=== PATIENT | male | born 1960 | race Caucasian/White ===

== ENCOUNTER 2016-05-18 14:42 | Emergency (ER) | payer MEDICARE ==
[2016-05-18 15:11] LABS: BASOPHILS 0.6 % (0.0-2.0); EOSINOPHILS 5.2 % (0-7); IMMATURE GRANULOCYTES 0.2 % (0-5); LYMPHOCYTES 29.6 % (15-50); MCH 30.6 pg (26.0-34.0); MCHC 33.3 g/dL (31.0-37.0); MCV 91.8 fL (80.0-100.0); MEAN PLATELET VOLUME 10.3 fL (7.4-10.4); MONOCYTES 16.7 % (2-11); NEUTROPHILS 47.7 % (40-80); PLATELET COUNT 132 10x3/uL (130-400); RBC 3.92 10x6/uL (4.20-6.10); RDW 13.5 % (11.5-14.5); WBC 6.2 10x3/uL (4.8-10.8)
[2016-05-18 15:37] LABS: ALBUMIN 3.2 g/dL (3.4-5.0); ALKALINE PHOSPHATASE 55 U/L (46-116); ALT (SGPT) 23 U/L (10-68); BILIRUBIN - TOTAL 0.26 mg/dL (0.2-1.3); CALC OSMOLALITY 278 mosm/kg (275-300); CALCIUM 8.6 mg/dL (8.5-10.1); CHLORIDE - SERUM 102 mmol/L (98-107); CREATININE - SERUM 0.8 mg/dL (0.6-1.3); GLUCOSE 85 mg/dL (74-106); MAGNESIUM - SERUM 1.6 mg/dL (1.8-2.4); POTASSIUM - SERUM 3.9 mmol/L (3.5-5.1); PROTEIN - SERUM 6.6 g/dL (6.4-8.2); SODIUM 139 mmol/L (136-145); UREA NITROGEN 19 mg/dL (7-18); eGFR NON AFRICAN AMERICAN > 90 mL/min (90-120)
== END 2016-05-18 17:54 | disposition home or self-care (01) ==
LOC: D.ER 14:42
PROVIDERS: Family Medicine
DX: G40.909 Epilepsy, unspecified, not intractable, without status epilepticus (principal); J44.9 Chronic obstructive pulmonary disease, unspecified; F29 Unspecified psychosis not due to a substance or known physiological condition; F41.9 Anxiety disorder, unspecified; Z91.81 History of falling

== ENCOUNTER 2016-12-08 16:46 | Emergency (ER) | payer MEDICARE ==
[2016-12-08 17:58] LABS: BASOPHILS 0.6 % (0-2); EOSINOPHILS 3.7 % (0-7); HEMATOCRIT 37.9 % (42.0-54.0); HEMOGLOBIN 13.1 g/dL (13.5-17.5); IMMATURE GRANULOCYTES 0.6 % (0-5); LYMPHOCYTES 21.5 % (15-50); MCH 31.3 pg (26.0-34.0); MCHC 34.6 g/dL (31.0-37.0); MCV 90.7 fL (80.0-100.0); MEAN PLATELET VOLUME 9.7 fL (7.4-10.4); MONOCYTES 17.8 % (2-11); NEUTROPHILS 55.8 % (40-80); RBC 4.18 10x6/uL (4.20-6.10); RDW 13.9 % (11.5-14.5); WBC 4.9 10x3/uL (4.8-10.8)
[2016-12-08 18:00] LABS: PLATELET COUNT 135 10x3/uL (130-400)
[2016-12-08 18:14] LABS: ALBUMIN 3.2 g/dL (3.4-5.0); ALKALINE PHOSPHATASE 66 U/L (46-116); ALT (SGPT) 21 U/L (10-68); BILIRUBIN - TOTAL 0.28 mg/dL (0.2-1.3); CALC OSMOLALITY 272 mosm/kg (275-300); CALCIUM 8.9 mg/dL (8.5-10.1); CARBON DIOXIDE 24.5 mmol/L (21.0-32.0); CHLORIDE - SERUM 101 mmol/L (98-107); CREATININE - SERUM 0.8 mg/dL (0.6-1.3); GLUCOSE 99 mg/dL (74-106); MAGNESIUM - SERUM 1.7 mg/dL (1.8-2.4); PROTEIN - SERUM 7.3 g/dL (6.4-8.2); SODIUM 136 mmol/L (136-145); UREA NITROGEN 15 mg/dL (7-18); eGFR NON AFRICAN AMERICAN > 90 mL/min (90-120)
== END 2016-12-08 19:16 | disposition home or self-care (01) ==
LOC: D.ER 16:46
PROVIDERS: Emergency Medicine
DX: G40.909 Epilepsy, unspecified, not intractable, without status epilepticus (principal); W19.XXXA Unspecified fall, initial encounter; Y93.89 Activity, other specified; Y92.89 Other specified places as the place of occurrence of the external cause; F17.200 Nicotine dependence, unspecified, uncomplicated; J44.9 Chronic obstructive pulmonary disease, unspecified

== ENCOUNTER → 2018-07-25 13:25 | Outpatient (CLI) | payer MEDICARE | END | disposition home or self-care (01) | LOC: D.CT 13:25 | PROVIDERS: ATTEND Legal Medicine | DX: R05 Cough (principal) ==

== ENCOUNTER 2018-09-16 15:56 | Emergency (ER) | payer MEDICARE ==
[~2018-09-16] VITALS: Ht 182.9 cm; Wt 68.2 kg
[2018-09-16 15:57] VITALS: Ht 182.9 cm; Wt 68.2 kg
[2018-09-16] MEDS ORDERED: TESSALON PERLE100 MG PO (16:00)
[2018-09-16] MEDS ORDERED: CALCIUM 600 +1 EAC3 PO (16:00)
[2018-09-16] MEDS ORDERED: ACETAMINOPHEN325 MG PO (16:00)
[2018-09-16] MEDS ORDERED: ASPIRIN81 MG PO (16:00)
[2018-09-16] MEDS ORDERED: DEPAKOTE500 MG PO (16:01)
[2018-09-16] MEDS ORDERED: VITAMIN D31000 UNI2 PO (16:01)
[2018-09-16] MEDS ORDERED: VALIUM5 MG PO (16:01)
[2018-09-16] MEDS ORDERED: KLONOPIN1 MG PO (16:02)
[2018-09-16] MEDS ORDERED: ADVAIR HFA [SP]12 GM INH (16:02)
[2018-09-16] MEDS ORDERED: NEPHROCAPS SOFTG1 MG PO (16:02)
[2018-09-16] MEDS ORDERED: KEPPRA750 MG PO (16:02)
[2018-09-16] MEDS ORDERED: MYLANTA / MAALO30 ML PO (16:03)
[2018-09-16] MEDS ORDERED: METOPROLOL TART25 MG PO (16:03)
[2018-09-16] MEDS ORDERED: MELATONIN 3 MG1 TAB PO (16:03)
[2018-09-16] MEDS ORDERED: RISPERDAL2 MG PO (16:04)
[2018-09-16] MEDS ORDERED: KLOR-CON 1010 MEQ PO (16:04)
[2018-09-16] MEDS ORDERED: TYLENOL W/CODEI1 TAB PO (16:05)
[2018-09-16] MEDS ORDERED: TRAZODONE HCL150 MG PO (16:05)
[2018-09-16 16:41] LABS: HEMATOCRIT 33.8 % (42.0-54.0); HEMOGLOBIN 11.3 g/dL (13.5-17.5); MCH 31.5 pg (26.0-34.0); MCHC 33.4 g/dL (31.0-37.0); MCV 94.2 fL (80.0-100.0); MEAN PLATELET VOLUME 10.8 fL (7.4-10.4); RBC 3.59 10x6/uL (4.20-6.10); RDW 13.4 % (11.5-14.5); WBC 5.7 10x3/uL (4.8-10.8)
[2018-09-16 16:45] LABS: PLATELET COUNT 138 10x3/uL (130-400)
[2018-09-16 17:01] LABS: APPEARANCE CLEAR (CLEAR); BILIRUBIN NEGATIVE (NEGATIVE); COLOR DK YELLOW (YELLOW); GLUCOSE NEGATIVE (NEGATIVE); KETONE SMALL mg/dL (NEGATIVE); NITRITE NEGATIVE (NEGATIVE); PROTEIN NEGATIVE (NEGATIVE); SPECIFIC GRAVITY 1.015 (1.005-1.020)
[2018-09-16 17:03] LABS: BACTERIA FEW /hpf (NONE SEEN); EPITHELIAL CELLS 0-5 /hpf (0-5); MUCUS <1+ /lpf (NONE SEEN); RED CELLS - URINE 0-5 /hpf (0-5); WHITE CELLS - URINE OCC /hpf (0-5)
--- NOTE | 2018-09-16 17:03 | NUR ---
DR. BRIDGES NOTIFIED AND REVIEWED PTS BEHAVIOR AND ASSESSMENT RESULTS. PT IS LOW RISK PER DR. BRIDGES. DR. BRIDGES STATED TO GIVE RESOURECES TO PT AT TIME OF DISCHARGE. NO FURTHER ORDERS AT THIS TIME. RESOURCES REVIEWED WITH PT AND HE VERBALIZED UNDERSTANDING.
[2018-09-16 17:11] LABS: UDS - AMPHET NEGATIVE QUAL (NEGATIVE); UDS - BARB NEGATIVE QUAL (NEGATIVE); UDS - BENZO NEGATIVE QUAL (NEGATIVE); UDS - COCAINE NEGATIVE QUAL (NEGATIVE); UDS - OPIATE POSITIVE QUAL (NEGATIVE); UDS - PCP NEGATIVE QUAL (NEGATIVE); UDS - THC NEGATIVE QUAL (NEGATIVE)
[2018-09-16 17:32] LABS: ALBUMIN 2.7 g/dL (3.4-5.0); ALKALINE PHOSPHATASE 78 U/L (46-116); ALT (SGPT) 9 U/L (10-68); BILIRUBIN - TOTAL 0.25 mg/dL (0.2-1.3); CALC OSMOLALITY 271 mosm/kg (275-300); CALCIUM 9.1 mg/dL (8.5-10.1); CHLORIDE - SERUM 105 mmol/L (98-107); CREATININE - SERUM 0.7 mg/dL (0.6-1.3); GLUCOSE 84 mg/dL (74-106); MAGNESIUM - SERUM 1.7 mg/dL (1.8-2.4); POTASSIUM - SERUM 3.7 mmol/L (3.5-5.1); PROTEIN - SERUM 6.9 g/dL (6.4-8.2); SODIUM 136 mmol/L (136-145); UREA NITROGEN 14 mg/dL (7-18); eGFR NON AFRICAN AMERICAN > 90 mL/min (90-120)
[2018-09-16 17:52] LABS: BASOPHILS 2 % (0-2); EOSINOPHILS 1 % (0-7); LYMPHOCYTES 20 % (15-50); MONOCYTES 10 % (2-11); NEUTROPHILS 67 % (40-80); PLATELET ESTIMATE NORMAL
[2018-09-16 18:52] VITALS: BP 101/67
== END 2018-09-16 19:01 | disposition home or self-care (01) ==
LOC: D.ER 15:56
PROVIDERS: Emergency Medicine
DX: Z13.39 Encounter for screening examination for other mental health and behavioral disorders (principal)

== ENCOUNTER → 2018-09-24 08:11 | Outpatient (CLI) | payer MEDICARE ==
[2018-09-16 15:57] VITALS: BMI 20.4
[~2018-09-24 08:11] MED LIST: ACETAMINOPHEN325 MG PO; ADVAIR HFA [SP]12 GM INH; ASPIRIN81 MG PO; CALCIUM 600 +1 EAC3 PO; DEPAKOTE500 MG PO; KEPPRA750 MG PO; KLONOPIN1 MG PO; KLOR-CON 1010 MEQ PO; MELATONIN 3 MG1 TAB PO; METOPROLOL TART25 MG PO; MYLANTA / MAALO30 ML PO; NEPHROCAPS SOFTG1 MG PO; RISPERDAL2 MG PO; TESSALON PERLE100 MG PO; TRAZODONE HCL150 MG PO; TYLENOL W/CODEI1 TAB PO; VALIUM5 MG PO; VITAMIN D31000 UNI2 PO
== END | disposition home or self-care (01) ==
LOC: D.CT 08:00
PROVIDERS: ATTEND Legal Medicine
DX: R91.8 Other nonspecific abnormal finding of lung field (principal)

== ENCOUNTER → 2020-07-08 14:02 | Outpatient (CLI) | payer MEDICARE ==
[2020-04-01 14:46] VITALS: BMI 23.7
[~2020-07-08 14:02] MED LIST changes: +ATIVAN1 MG IM; +CEREFOLIN TAB1 TAB PO; +COLACE100 MG PO; +GEODON20 MG PO; +MULTI-DAY VITAM1 TAB PO; +NICODERM CQ1 EAC3 TOPICAL; +NICODERM CQ1 EAC3 TRANSDERM; +PERCOCET 10-321 EAC1 PO; +PLAVIX75 MG PO; +PROAIR HFA8.5 G1 INH; +REMERON15 MG PO; +VALIUM10 MG RC
== END | disposition home or self-care (01) ==
LOC: D.RAD 06-24 13:00
PROVIDERS: ATTEND Legal Medicine
DX: R13.10 Dysphagia, unspecified (principal)

== ENCOUNTER 2020-09-02 13:58 | Emergency (ER) | payer MEDICARE ==
[~2020-09-02] VITALS: Ht 172.7 cm; Wt 50.0 kg
[2020-09-02 14:01] VITALS: BP 101/70; Ht 172.7 cm; Wt 50.0 kg
== END 2020-09-02 15:12 ==
LOC: D.ER 13:58
DX: R06.02 Shortness of breath (principal); R06.00 Dyspnea, unspecified; J69.0 Pneumonitis due to inhalation of food and vomit; I10 Essential (primary) hypertension; E11.9 Type 2 diabetes mellitus without complications; J44.9 Chronic obstructive pulmonary disease, unspecified